=== PATIENT | female | born 1990 | race Caucasian/White ===

== ENCOUNTER 2017-12-29 10:29 | Emergency (ER) | payer OTHER ==
[~2017-12-29] VITALS: Ht 165.1 cm; Wt 77.7 kg
[~2017-12-29 10:29] MED LIST: ACET325T14 PO; BC; CIPR500T87 PO; DOCU-131 PO; PHEN-583 PO
[2017-12-29] MEDS ORDERED: KETOROLAC 30 MG/1 ML ONE (11:29)
[2017-12-29] MEDS ORDERED: BENZONATATE 100 MG CAPSULE PO ONE (11:30)
[2017-12-29] MEDS ORDERED: KETOROLAC 30 MG/1 ML IM ONE (11:30)
[2017-12-29] MEDS ORDERED: BENZONATATE 100 MG CAPSULE ONE (11:30)
[2017-12-29 12:03] LABS: RAPID INFLUENZA A POSITIVE (Negative); RAPID INFLUENZA B Negative (Negative)
[2017-12-29 12:09] VITALS: BP 108/71
== END 2017-12-29 12:38 | disposition home or self-care (01) ==
LOC: ED 12:16
DX: J10.1 Influenza due to other identified influenza virus with other respiratory manifestations (principal); Z87.891 Personal history of nicotine dependence
CPT/HCPCS: 71045; 87400; 93005; 96372; 99284; J1885

== ENCOUNTER 2018-12-31 20:01 | Emergency (ER) | payer OTHER ==
[~2018-12-31] VITALS: Ht 165.1 cm; Wt 82.5 kg
[2018-12-31 20:02] VITALS: BP 134/98
--- NOTE | 2018-12-31 20:15 | NUR ---
PT CUT FINGER WITH KNIFE WHILE CUTTING COOKED CHICKEN. PT IMMEDIATELY APPLIED PRESSURE TO STOP THE BLEEDING. BLEEDING UNDER CONTROL AT THIS TIME. FAMILY AT BEDSIDE.
[2018-12-31] MEDS ORDERED: LIDOCAINE-MPF 1%, 5ML ONE ×2 (20:22→21:13)
[2018-12-31] MEDS ORDERED: LIDOCAINE-MPF 1%, 5ML INFIL ONE (20:30)
[2018-12-31] MEDS ORDERED: DIPH,PERTUSS(ACELL),TET VAC/PF 0.5 ML IM-VACC ONE ×2 (21:42→22:00)
[2018-12-31] MEDS ORDERED: HYDROcodone/APAP 5/325 TABLET ONE (21:42)
[2018-12-31] MEDS ORDERED: HYDROcodone/APAP 5/325 TABLET PO ONE (22:00)
== END 2018-12-31 22:04 | disposition home or self-care (01) ==
LOC: ED 21:58
DX: S61.112A Laceration without foreign body of left thumb with damage to nail, initial encounter (principal); Z90.89 Acquired absence of other organs; W26.0XXA Contact with knife, initial encounter; Y93.89 Activity, other specified; Y92.009 Unspecified place in unspecified non-institutional (private) residence as the place of occurrence of the external cause; Y99.8 Other external cause status
CPT/HCPCS: 12041; 90471; 90715; 99284

== ENCOUNTER 2019-01-10 17:38 | Emergency (ER) ==
[~2019-01-10] VITALS: Ht 165.1 cm; Wt 85.0 kg
[2019-01-10 17:41] VITALS: BP 121/74
--- NOTE | 2019-01-10 17:58 | NUR ---
PT HERE FOR STITCHES REMOVAL X 2 TO LEFT THUMB. INITIAL INJURY 01/05. PA AT BEDSIDE.
--- NOTE | 2019-01-10 18:12 | NUR ---
Patient/Caregiver given discharge instructions and they have confirmed that they understand the instructions. Patient ambulatory with steady gait.
== END 2019-01-10 18:13 | disposition home or self-care (01) ==
LOC: ED 18:07
DX: S61.012D Laceration without foreign body of left thumb without damage to nail, subsequent encounter (principal); Z90.89 Acquired absence of other organs; X58.XXXD Exposure to other specified factors, subsequent encounter
CPT/HCPCS: 99281